=== PATIENT | male | born 1990 | race Two or more races ===

== ENCOUNTER 2018-11-27 17:16 | Emergency (ER) | payer BC ==
[~2018-11-27] VITALS: Ht 167.6 cm; Wt 131.5 kg
[2018-11-27 17:33] VITALS: BP 114/63
--- NOTE | 2018-11-27 17:36 | NUR ---
ED Nurse Note: Patient walked in to ER due to SOB. Stated that took vitamins earlier today, and after that started feeling palpitation. AAO x4, VSS at this time, 12 leds ECG was performed patient has sinus rhythm.
--- NOTE | 2018-11-27 17:57 | Emergency Room Report ---
History of Present Illness General Chief Complaint: Palpitations Source: Patient Present Illness HPI 28-year-old male with no significant past medical history presents to the emergency department complaining of acute onset of palpitations, lightheadedness , paresthesias in the bilateral hands as well as feeling short of breath approximately 30 minutes prior to arrival. Patient reports that he has had 2 episodes today. Patient states he was at work when he had acute onset of his symptoms he states he has not eaten today and is only taken vitamin drink. Patient denies history of anxiety. Denies cardiac hx. Denies drug use. He denies pain or chest pain. Patient reports that he has been evaluated 2 weeks ago for intermittent shortness of breath and was told that he will need sleep apnea studies he has not received his results from pulmonology testing it. Cough, fevers, or chills. No other aggravating or relieving factors. States that his symptoms have subsided on their own upon arrival here in the ED. Denies recent travel or hemoptysis. Allergies: Coded Allergies: No Known Allergies (Unverified , 11/27/18) Patient History Past Medical History: see triage record Past Surgical History: none Pertinent Family History: none Reviewed Nursing Documentation: PMH: Agreed; PSxH: Agreed Nursing Documentation-PMH Past Medical History: No Stated History Review of Systems All Other Systems: negative except mentioned in HPI Physical Exam Vital Signs Date Time Temp Pulse Resp B/P (MAP) Pulse Ox O2 Delivery O2 Flow Rate FiO2 11/27/18 17:20 99.1 95 20 114/63 (80) 94 Room Air Sp02 EP Interpretation: reviewed, normal General Appearance: no apparent distress, alert, GCS 15, non-toxic Head: normocephalic, atraumatic Eyes: bilateral eye normal inspection, bilateral eye PERRL ENT: hearing grossly normal, normal voice Neck: full range of motion Respiratory: chest non-tender, lungs clear, normal breath sounds, no respiratory distress, no accessory muscle use, no wheezing, speaking full sentences Cardiovascular #1: regular rate, rhythm, no edema Musculoskeletal: back normal, gait/station normal, normal range of motion, non- tender Neurologic: alert, oriented x3, responsive, motor strength/tone normal, sensory intact, speech normal, grossly normal Psychiatric: judgement/insight normal Lymphatic: no adenopathy Medical Decision Making PA Attestation Dr. Wu is my supervising Physician whom patient management has been discussed with. Diagnostic Impression: Primary Impression: Palpitations ER Course 28-year-old male with no significant past medical history presents to the emergency department complaining of acute onset of palpitations, lightheadedness , paresthesias in the bilateral hands as well as feeling short of breath approximately 30 minutes prior to arrival. Patient reports that he has had 2 episodes today. Patient states he was at work when he had acute onset of his symptoms he states he has not eaten today and is only taken vitamin drink. Patient denies history of anxiety. Denies cardiac hx. Denies drug use. He denies pain or chest pain. Patient reports that he has been evaluated 2 weeks ago for intermittent shortness of breath and was told that he will need sleep apnea studies he has not received his results from pulmonology testing it. Cough, fevers, or chills. No other aggravating or relieving factors. States that his symptoms have subsided on their own upon arrival here in the ED. Denies recent travel or hemoptysis. Ddx considered but are not limited to ME, arrhythmia, hypokalemia, anxiety reaction. Vital signs: are WNL, pt. is afebrile H&PE are most consistent with hypoglycemic episode or reaction to vitamin consumption without eating. ORDERS: - EK NSR -Accu Check: 93 - BMP: WNL ED INTERVENTIONS: none required at this time. Pt. has been Asymptomatic during ED visit. PT EDUCATION: Eat regularly especially with taking only vitamins, Cardiology follow up for Holter monitoring if palpitations continue to occur. Drink plenty of water. DISCHARGE: At this time pt. is stable for d/c to home. Will provide printed patient care instructions, and any necessary prescriptions. Care plan and follow up instructions have been discussed with the patient prior to discharge. Labs Test 11/27/18 18:00 Sodium Level 140 MMOL/L (136-145) Potassium Level 3.9 MMOL/L (3.5-5.1) Chloride Level 102 MMOL/L (98-107) Carbon Dioxide Level 27 MMOL/L (21-32) Anion Gap 11 mmol/L (5-15) Blood Urea Nitrogen 9 mg/dL (7-18) Creatinine 1.0 MG/DL (0.55-1.30) Estimat Glomerular Filtration Rate > 60 mL/min (>60) Glucose Level 94 MG/DL (74-106) Calcium Level 9.7 MG/DL (8.5-10.1) EKG Diagnostic Results EP Interpretation: Dr. Wu Rate: normal - 71 Rhythm: NSR ST Segments: no acute changes ASA given to the pt in ED: No PA Scribe Text This Interpretation was scribed by ASHISH Freeman. Last Vital Signs Date Time Temp Pulse Resp B/P (MAP) Pulse Ox O2 Delivery O2 Flow Rate FiO2 11/27/18 17:33 99.1 20 114/63 94 Room Air 11/27/18 17:20 95 Status: improved Disposition: HOME, SELF-CARE Condition: Stable Patient Instructions: Palpitations Additional Instructions: Take any previously prescribed medications as directed. Follow up with a Primary Care Provider in 3-5 days, even if your symptoms have resolved. * If palpitations persist Cardiology Eval and Holter monitoring is recommended* --Please review list of primary care clinics, if you do not already have a primary care provider Return sooner to ED if new symptoms occur, or current symptoms become worse. - Please note that this Emergency Department Report was dictated using [employer] intern technology software, occasionally this can lead to erroneous entry secondary to interpretation by the dictation equipment. Yumi Freeman Nov 27, 2018 17:57
[2018-11-27 18:43] LABS: ANION GAP 11 mmol/L (5-15); BLOOD UREA NITROGEN 9 mg/dL (7-18); CALCIUM 9.7 MG/DL (8.5-10.1); CARBON DIOXIDE 27 MMOL/L (21-32); CHLORIDE 102 MMOL/L (98-107); POTASSIUM 3.9 MMOL/L (3.5-5.1); SODIUM 140 MMOL/L (136-145)
[2018-11-27 18:51] VITALS: BP 114/63
--- NOTE | 2018-11-27 18:52 | NUR ---
ED Nurse Note: Pt cleared by health care Provider for discharge. DC instructions/prescription was given and explained to pt and verbalized understanding of teachings. All medical deviecs such as ID band removed. Pt is AAO x4, ambulatory and left with all personal belongings.
--- NOTE | 2018-11-28 12:37 | Cardiology Report ---
APPROVED REPORT EKG Measurement Heart [id number] Normal sinus rhythm with sinus arrhythmia Normal ECG
== END 2018-11-27 18:55 | disposition home or self-care (01) ==
LOC: EMR 18:01
DX: R00.2 Palpitations (principal)
CPT/HCPCS: 36415; 80048; 82962; 93005; 99283

== ENCOUNTER 2018-12-02 08:32 | Emergency (ER) | payer BC ==
[~2018-12-02] VITALS: Ht 167.6 cm; Wt 104.3 kg
[2018-12-02 08:47] VITALS: BP 133/84
--- NOTE | 2018-12-02 08:50 | NUR ---
ED Nurse Note: AMBULATED IN TO ED DUE TO DIZZINESS, SORENESS OF JAWS, WEAKNESS, NUMBNESS/TINGLING OF BILATERAL HANDS X COUPLE DAYS. PER PT, HE WAS AT [facility] A WEEK AGO FOR SIMILAR SYMPTOMS BUT SYMPTOMS REMAINED. A/OX4. NO FACIAL DROOP NOTED, ABLE TO RAISE BILATERAL ARMS WITHOUT ANY RESISTANCE. STEADY GAIT. PT IS NOW RESTING IN [facility]. NAD NOTED.
[2018-12-02 09:28] VITALS: BP 133/84
--- NOTE | 2018-12-02 09:36 | NUR ---
g send with patientDischarged home with instruction to follow up with pmd copies of ekg send with patient
--- NOTE | 2018-12-02 10:31 | Emergency Room Report ---
History of Present Illness General Chief Complaint: General Complaint Source: Patient Present Illness HPI 28-year-old male presents ED for evaluation. Complaining of heart racing, dizziness, tingling in the arm and tightness in his jaw. Has been happening on and off for 1 year now. States symptoms started today after drinking coffee. Was seen here 1 week ago for similar presentation. Denies alcohol or drug use. No other aggravating or relieving factors. Denies any other associated symptoms Allergies: Coded Allergies: No Known Allergies (Unverified , 12/02/18) Patient History Past Medical History: none Past Surgical History: none Pertinent Family History: none Social History: Denies: smoking, alcohol use, drug use Immunizations: UTD Reviewed Nursing Documentation: PMH: Agreed; PSxH: Agreed Nursing Documentation-PMH Past Medical History: No Stated History Review of Systems All Other Systems: negative except mentioned in HPI Physical Exam Vital Signs Date Time Temp Pulse Resp B/P (MAP) Pulse Ox O2 Delivery O2 Flow Rate FiO2 12/02/18 08:42 98.6 97 16 133/84 (100) 97 Room Air Sp02 EP Interpretation: reviewed, normal General Appearance: no apparent distress, alert, GCS 15, non-toxic Head: normocephalic, atraumatic Eyes: bilateral eye normal inspection, bilateral eye PERRL ENT: hearing grossly normal, normal pharynx, no angioedema, normal voice Neck: full range of motion, supple/symm/no masses Respiratory: chest non-tender, lungs clear, normal breath sounds, speaking full sentences Cardiovascular #1: regular rate, rhythm, no edema Cardiovascular #2: 2+ carotid (R), 2+ carotid (L), 2+ radial (R), 2+ radial (L) , 2+ dorsalis pedis (R), 2+ dorsalis pedis (L) Gastrointestinal: normal bowel sounds, non tender, soft, non-distended, no guarding, no rebound Rectal: deferred Genitourinary: normal inspection, no CVA tenderness Musculoskeletal: back normal, gait/station normal, normal range of motion, non- tender Neurologic: alert, oriented x3, responsive, motor strength/tone normal, sensory intact, speech normal Psychiatric: judgement/insight normal, memory normal, mood/affect normal, no suicidal/homicidal ideation Reflexes: 3+ bicep (R), 3+ bicep (L), 3+ tricep (R), 3+ tricep (L), 3+ knee (R) , 3+ knee (L) Lymphatic: no adenopathy Medical Decision Making Diagnostic Impression: Primary Impression: Palpitations ER Course Hospital Course 28-year-old male presents with tingling in the arm, palpitations, tightness in the jaw Differential diagnoses include: MO/unstable angina, arythmia, anxiety Clinical course Patient placed on stretcher. She will history physical exam reveals young male in no acute distress. Lungs clear. 5 out of 5 motor strength in all extremities. No sensory deficit. Remainder of exam unremarkable. vitals stable. I ordered EKGnormal sinus rhythm no acute ischemic changes interpreted by me Seen here 1 week ago for similar presentation had work-up including labs and EKG all of which were unremarkable. Discussed findings with patient. Consideration for anxiety as a possible source as well as caffeine as triggering his palpitations. Safe for discharge for close outpatient follow-up. Does not have a PMD. Will provide referrals I. I feel this is a highly complex case requiring extensive working including EKG/Rhythm strip, Xray/CT/US, Blood/urine lab work, repeat exams while in ED, and administration of strong opiates/narcotics for pain control, admission to hospital or close patient follow up. Diagnosis - palpitations Stable and discharged to home. Followup with PMD. Return to ED if symptoms recur or worse EKG Diagnostic Results Rate: normal Rhythm: NSR ST Segments: no acute changes ASA given to the pt in ED: No Rhythm Strip Diag. Results EP Interpretation: yes Rhythm: NSR, no PVC's, no ectopy Last Vital Signs Date Time Temp Pulse Resp B/P (MAP) Pulse Ox O2 Delivery O2 Flow Rate FiO2 12/02/18 09:28 98.6 97 16 133/84 97 Room Air Status: improved Disposition: HOME, SELF-CARE Condition: Stable Scripts No Active Prescriptions or Reported Meds Referrals: NOT CHOSEN ANIRUDH/,REFERRING (PCP) [facility] Sheila [facility] Patient Instructions: Palpitations, [id number] Isidoro Wu MD Dec 02, 2018 10:31
--- NOTE | 2018-12-03 11:21 | Cardiology Report ---
APPROVED REPORT EKG Measurement Heart [id number] Normal sinus rhythm with sinus arrhythmia Normal ECG
== END 2018-12-02 09:35 | disposition home or self-care (01) ==
LOC: EMR 09:20
DX: R00.2 Palpitations (principal)
CPT/HCPCS: 93005; 99283